=== PATIENT | female | born 1995 | race Two or more races ===

== ENCOUNTER 2023-03-04 03:15 | Emergency (ER) | payer MEDICAID ==
[~2023-03-04] VITALS: Ht 165.1 cm; Wt 51.7 kg
--- NOTE | 2023-03-04 03:46 | NUR ---
KATY. RLQ ABD PAIN, DIARRHEA AND FEVER STARTED YESTERDAY. 12 WEEKS PRENGNANT. TO BED 7. A/OX4. CONNECTED TO MONITOR.
--- NOTE | 2023-03-04 03:47 | NUR ---
URINE COLLECTED AND SENT TO LAB
[2023-03-04] MEDS ORDERED: ACETAMINOPHEN 325 MG TABLET PO ONE (04:00)
[2023-03-04] MEDS ORDERED: ONDANSETRON HCL/PF 4 MG/2 ML VIAL IVP ONE (04:00)
[2023-03-04] MEDS ORDERED: IV NS 0.9% 1,000 ML BAG IV ONE (04:00)
--- NOTE | 2023-03-04 04:00 | NUR ---
IV PLACED IN [facility], LABS DRAWN AT THIS TIME.
[2023-03-04] MEDS ORDERED: ACETAMINOPHEN ES 500 MG TABLET ONE (04:02)
[2023-03-04] MEDS ORDERED: ONDANSETRON HCL/PF 4 MG/2 ML VIAL ONE (04:02)
[2023-03-04 04:06] LABS: BASOPHILS % (AUTO) 0.5 % (0.0-2.0); EOSINOPHILS % (AUTO) 0.9 % (0.0-6.0); HEMATOCRIT 34 % (33-45); LYMPHOCYTES # (AUTO) 1.9 K/uL (0.8-4.8); MEAN CORPUSCULAR HGB CONC 33 g/dl (31.0-36.0); MEAN CORPUSCULAR VOLUME 82 fL (82-100); MONOCYTES # (AUTO) 0.7 K/uL (0.1-1.30); MONOCYTES % (AUTO) 11.1 % (2.0-12.0); NEUTROPHILS # (AUTO) 3.6 K/uL (1.8-8.9); NEUTROPHILS % (AUTO) 57.5 % (43.0-81.0); PLATELET COUNT (AUTO) 166 K/uL (150-450); RED BLOOD CELL COUNT(AUTO) 4.14 MIL/uL (4.0-5.2); WHITE BLOOD COUNT (AUTO) 6.2 K/uL (4.3-11.0)
[2023-03-04 04:08] LABS: BILIRUBIN,URINE NEGATIVE (NEGATIVE); COLOR,URINE YELLOW (YELLOW); LEUKOCYTE ESTERASE ,URINE NEGATIVE (NEGATIVE); NITRITE, URINE NEGATIVE (NEGATIVE); PH,URINE 5.5 (5.0-8.0); PROTEIN,URINE TRACE mg/dl (NEGATIVE); UGLUCOSE NEGATIVE (NEGATIVE); UROBILINOGEN,URINE 0.2 EU/dL (0.2)
--- NOTE | 2023-03-04 04:17 | NUR ---
ULTRA SOUND TECH AT BEDSIDE
[2023-03-04 04:46] LABS: BACTERIA,URINE Rare /HPF (None Seen); SQUAMOUS EPITHELIAL CELL,UR Moderate /HPF (None Seen); URINE AMORPHOUS URATE Moderate /HPF (None Seen); WBC,URINE 0-2 /HPF (0-3)
[2023-03-04 04:47] LABS: CALCIUM, SERUM 8.8 mg/dL (8.5-10.1); CREATININE 0.6 mg/dL (0.6-1.3); POTASSIUM 3.3 mmol/L (3.5-5.1)
--- NOTE | 2023-03-04 07:30 | NUR ---
Patient AOx4 able to express her concerns, at bedside. Patient with no signs of distress. Discussed plan of care, pt verbalized agreement.
[2023-03-04 08:18] VITALS: BP 96/62
== END 2023-03-04 08:19 | disposition home or self-care (01) ==
LOC: ER 03:23
DX: O26.891 Other specified pregnancy related conditions, first trimester (principal); R10.31 Right lower quadrant pain
CPT/HCPCS: 99285; 76856; 96374; 96361; 76705; 85025; 80048; 81001; 36415; 84702; J2405; J7030